=== PATIENT | female | born 1995 | race Caucasian/White ===

== ENCOUNTER 2018-06-05 14:49 | Emergency (ER) | payer BC ==
[2018-06-05] MEDS: DIPHTH/TET/ACEL PERTUSS (ADULT) 0.5 ML VIAL IM* (16:59)
[2018-06-05] MEDS: LIDOCAINE 1% (MPF) 5 ML VIAL INFIL (17:00)
== END 2018-06-05 18:47 | disposition home or self-care (01) ==
LOC: FTE 14:49
DX: S61.411A Laceration without foreign body of right hand, initial encounter (principal); W26.8XXA Contact with other sharp object(s), not elsewhere classified, initial encounter; Y92.9 Unspecified place or not applicable; Z23 Encounter for immunization
CPT/HCPCS: 12001; 90471; 90715; 99283-25